=== PATIENT | female | born 1975 | race Caucasian/White ===

== ENCOUNTER → 2016-08-05 | Outpatient (CLI) | payer BC ==
[2016-08-05 16:28] LABS: Basophils # (A) 0.1 k/uL (0-0.2); Basophils % (A) 1 %; CH 30.9; CHCM 33.3; Eosinophils # (A) 0.2 k/uL (0-0.7); Eosinophils % (A) 2 %; HCT 39.2 % (34.0-46.0); HDW 2.28; HGB 12.7 gm/dL (11.4-16.0); Luc # (Auto) 0.15; Luc % (Auto) 2; Lymphocytes # (A) 3.3 k/uL (1.0-4.8); Lymphocytes % (A) 33 %; MCH 30.2 pg (25.0-35.0); MCHC 32.3 g/dL (31.0-37.0); MCV 93.4 fL (80.0-100.0); Mean Platelet Volume 6.3; Monocytes # (A) 0.5 k/uL (0-1.0); Monocytes % (A) 5 %; Neutrophils # (A) 5.7 k/uL (1.3-7.7); Neutrophils % (A) 58 %; WBC 9.9 k/uL (3.8-10.6); WBC (Perox) 10.42
[2016-08-05 18:02] LABS: Erythrocyte Sedimentation Rate 20 mm/hr (0-20)
[2016-08-06 04:01] LABS: Lyme Antibodies Total(IgG/IgM) 0.06 (<0.90)
[2016-08-06 11:39] LABS: HLA B27 POSITIVE; HLA B27 Comment SEEBELOW
[2016-08-06 14:48] LABS: C-ANCA <1:20 Titer (<1:20); P-ANCA <1:20 Titer (<1:20)
== END | disposition home or self-care (01) ==
LOC: LABWHC1 16:11
PROVIDERS: ATTEND Nurse Practitioner Family
DX: M25.50 Pain in unspecified joint (principal); M54.2 Cervicalgia; M50.90 Cervical disc disorder, unspecified, unspecified cervical region
CPT/HCPCS: 36415; 85025; 85652; 86038; 86255; 86618; 86812

== ENCOUNTER → 2016-08-27 | Outpatient (CLI) | payer BC ==
[2016-08-27 16:05] LABS: Basophils % (A) 0 %; CH 31.1; CHCM 33.5; Eosinophils # (A) 0.1 k/uL (0-0.7); Eosinophils % (A) 1 %; HCT 40.5 % (34.0-46.0); HDW 2.29; HGB 13.7 gm/dL (11.4-16.0); Luc # (Auto) 0.24; Luc % (Auto) 2; Lymphocytes # (A) 3.1 k/uL (1.0-4.8); Lymphocytes % (A) 28 %; MCH 31.7 pg (25.0-35.0); MCHC 33.9 g/dL (31.0-37.0); MCV 93.3 fL (80.0-100.0); Mean Platelet Volume 7.3; Monocytes # (A) 0.5 k/uL (0-1.0); Monocytes % (A) 5 %; Neutrophils # (A) 6.8 k/uL (1.3-7.7); Neutrophils % (A) 63 %; RBC 4.34 m/uL (3.80-5.40); RDW 12.8 % (11.5-15.5); WBC 10.8 k/uL (3.8-10.6); WBC (Perox) 11.44
== END ==
LOC: LABWHC1 15:35
PROVIDERS: ATTEND Obstetrics & Gynecology
DX: Z01.812 Encounter for preprocedural laboratory examination (principal); N92.0 Excessive and frequent menstruation with regular cycle
CPT/HCPCS: 36415; 85025

== ENCOUNTER 2016-09-22 07:09 | Day surgery (SDC) | payer BC ==
[2016-09-17 11:02] VITALS: BMI 25.7
--- NOTE | 2016-09-18 16:37 | HP ---
DATE OF ADMISSION: 09/22/2016 HISTORY: This is a 41-year-old 2, para 2 woman with a history of heavy, bothersome menses. She has monthly menses lasting 5 days with 2 to 3 days being very heavy. She desires definitive management in the form of NovaSure endometrial ablation. She has undergone normal pelvic ultrasound and endometrial biopsy. ALLERGIES: NO KNOWN DRUG ALLERGIES. MEDICATIONS: 1. Xanax 0.5 mg p.r.n. 2. Flexeril p.r.n. PAST MEDICAL HISTORY: Condyloma. PAST SURGICAL HISTORY: Laparoscopic cholecystectomy in 2009. PAST INTERFACE ANALYST HISTORY: She is 2, para 2 with a history of 2 normal spontaneous vaginal deliveries. She has regular but bothersome menses, as described above. control method is vasectomy. SOCIAL HISTORY: She is . Negative for tobacco, alcohol and drug use. FAMILY HISTORY: Noncontributory. REVIEW OF SYSTEMS: Positive for bothersome menses. Negative for anemia, fatigue, fevers, chills, nausea, vomiting, diarrhea, constipation, chest pain, shortness of breath. PHYSICAL EXAMINATION: Blood pressure is 112/70, heart rate 60. Weight 201 pounds. Height 5 feet 11-1/2 inches. In general, this is a pleasant female in no apparent distress. HEENT exam is unremarkable, with no palpable lymphadenopathy or thyromegaly. Lungs are clear to auscultation bilaterally. The heart has a regular rate and rhythm. The abdomen is soft and nontender with no rebound, no guarding and no flank pain. The extremities are free of any edema or lesions. Neurologically she is grossly intact. On pelvic examination, she has normal female external genitalia without lesions or irritation. The uterus is small, anteverted, freely mobile and in the midline. There are no adnexal abnormalities palpable. ASSESSMENT: This is a 41-year-old 2, para 2 woman with bothersome menses who is scheduled to undergo diagnostic hysteroscopy and NovaSure endometrial ablation. This procedure, alternatives, risks and benefits have been reviewed with the patient in the office setting in detail. Risks include but are not limited to bleeding, infection, uterine injury with possible damage to bowel, bladder, ureters and/or other pelvic structures, possible need for reoperation in the future, possible anesthesia complications. The patient understands these risks and agrees to proceed. She is scheduled for diagnostic hysteroscopy and NovaSure endometrial ablation on 09/22/2016.
[~2016-09-22 07:09] MED LIST: Pre Op ABX Message 1 EACH MISC MISCELLANE ONE
[2016-09-22] MEDS ORDERED: DEXAMETHASONE SOD PHOSPHATE 10 MG/ML 1 ML VIAL IV ONE (07:24)
[2016-09-22] MEDS ORDERED: ONDANSETRON 4 MG/2 ML VIAL IVP ONE (07:24)
[2016-09-22] MEDS ORDERED: MIDAZOLAM 2 MG/2 ML VIAL IV PRN (07:24)
[2016-09-22] MEDS ORDERED: LACTATED RINGERS 1,000 ML IV SCH (07:24)
[2016-09-22] MEDS ORDERED: HYDROmorphone 1 MG/ML 1 ML SYRINGE IVP PRN (07:24)
[2016-09-22] MEDS ORDERED: LIDOCAINE 1% 20 ML VIAL (10MG/ML) FOR IV START INTRADERMA ONE (07:50)
[2016-09-22] MEDS ORDERED: MIDAZOLAM 2 MG/2 ML VIAL ONE (09:51)
[2016-09-22] MEDS ORDERED: fentaNYL (PF) 50 MCG/ML 2 ML AMP ONE (09:51)
[2016-09-22] MEDS ORDERED: KETOROLAC 30 MG/ML 1 ML VIAL ONE (09:51)
[2016-09-22] MEDS ORDERED: LIDOCAINE 1% INJ 10MG/ML (20 ML MDV) ONE (09:51)
[2016-09-22] MEDS ORDERED: PROPOFOL 10 MG/ML 20 ML VIAL IV ONE (09:51)
[2016-09-22] MEDS ORDERED: LIDOCAINE 2%-EPI 1:100,000 20 ML VIAL SUBMUCOSAL ONE ×2 (10:05)
--- NOTE | 2016-09-22 10:27 | P.OP ---
Date of Procedure: 09/22/16 Preoperative Diagnosis: Menorrhagia Postoperative Diagnosis: Menorrhagia Anesthesia: MAC Surgeon: Johanny Escobar Estimated Blood Loss (ml): 5 IV fluids (ml): 400 Urine output (ml): 50 Pathology: none sent Condition: stable Disposition: PACU Operative Findings: Grossly normal-appearing cervix and intrauterine cavity. Description of Procedure: After the patient was met in the preoperative holding area and all questions were answered, she was taken to the operating room where anesthetic was administered without incident. She was in positioned, prepped and draped in the dorsal lithotomy position. Appropriate timeout procedure was undertaken. The bladder was drained for approximately 50 mL of clear urine. Speculum was placed in the vagina and the cervix was grasped anteriorly with a single-tooth tenaculum. Paracervical block was placed. This was with 2% lidocaine plus epinephrine. The uterus was then sounded to 8 cm. The cervix was sequentially dilated with Hegar dilators to allow for passage of the diagnostic hysteroscope. The hysteroscope was introduced and the cavity was assessed. No gross intracavitary lesions were appreciated. The bilateral tubal ostia were visualized. The hysteroscope was removed and the cervix was further dilated to allow for passage of the NovaSure ablation device. The device was inserted with a cavity length of 4.5 cm, width of 4.5 cm. The device was enabled after the cavity assessment test was passed. Treatment cycle was 119 seconds at a power of 111 W. Following cessation of the treatment cycle the device was removed. The hysteroscope was reintroduced and complete desiccation of the endometrium was appreciated. Instruments were then removed from the cervix and it was observed. No active bleeding was noted. Speculum was removed from the vagina and the patient was awoken from anesthetic without incident. She was then transported to the recovery area in stable condition. All counts reported to me as correct.
[2016-09-22 10:34] VITALS: TEMP 97
[2016-09-22 10:48] VITALS: RESP 16
[2016-09-22 11:37] VITALS: BP 114/76; PULSE 66
== END 2016-09-22 12:01 | disposition home or self-care (01) ==
LOC: OR 07:09
PROVIDERS: ATTEND Obstetrics & Gynecology
DX: N92.0 Excessive and frequent menstruation with regular cycle (principal)
CPT/HCPCS: 81025; 58563; J2250; J1100; J2405; J2001; J3010; J1885; J2704

== ENCOUNTER → 2016-11-06 | Outpatient (CLI) | payer BC ==
--- NOTE | 2016-11-07 08:55 | MM ---
Reason for exam: follow-up at short interval from prior study. Last mammogram was performed 7 months ago. Physical Findings: Nurse did not find any significant physical abnormalities on exam. MG 3D Diag Mammo W/Cad LT CC and MLO view(s) were taken of the left breast. Prior study comparison: April 01, 2016, bilateral MG 3d screening mammo w/cad. The breast tissue is heterogeneously dense. This may lower the sensitivity of mammography. The central asymmetric density on the CC view does not persist compatible with summation shadow. These results were verbally communicated with the patient and result sheet given to the patient on 11/06/16. ASSESSMENT: Negative, BI-RAD 1 RECOMMENDATION: Routine screening mammogram of both breasts in 6 months. Back on schedule April 2017.
== END | disposition home or self-care (01) ==
LOC: RADMAMWWP 15:39
PROVIDERS: ATTEND Obstetrics & Gynecology
DX: R92.8 Other abnormal and inconclusive findings on diagnostic imaging of breast (principal)
CPT/HCPCS: G0206; G0279

== ENCOUNTER → 2017-01-19 | Outpatient (CLI) | payer BC ==
[2017-01-19 08:59] LABS: Basophils % (A) 0 %; CH 32.3; CHCM 34.2; Eosinophils # (A) 0.2 k/uL (0-0.7); Eosinophils % (A) 2 %; HCT 40.9 % (34.0-46.0); HDW 2.22; HGB 13.6 gm/dL (11.4-16.0); Luc # (Auto) 0.15; Luc % (Auto) 2; Lymphocytes # (A) 2.3 k/uL (1.0-4.8); Lymphocytes % (A) 27 %; MCH 31.5 pg (25.0-35.0); MCHC 33.2 g/dL (31.0-37.0); Mean Platelet Volume 6.9; Monocytes # (A) 0.4 k/uL (0-1.0); Monocytes % (A) 5 %; Neutrophils # (A) 5.6 k/uL (1.3-7.7); Neutrophils % (A) 64 %; RDW 13.7 % (11.5-15.5); WBC 8.7 k/uL (3.8-10.6); WBC (Perox) 8.88
[2017-01-19 10:25] LABS: ALT 34 U/L (9-52); AST 23 U/L (14-36); Bilirubin, Delta 0.3 mg/dL (0.0-0.2); Blood Urea Nitrogen 9 mg/dL (7-17); C Reactive Protein 11.7 mg/L (<10.0); Non-African American GFR(MDRD) >60 (>60 ml/min/1.73 sqM); Rheumatoid Factor, Qnt <9 IU/mL (<12); Total Bilirubin 0.6 mg/dL (0.2-1.3)
[2017-01-19 12:18] LABS: Erythrocyte Sedimentation Rate 23 mm/hr (0-20)
[2017-01-19 16:59] LABS: Cyclic Citrull Pep IgG Unit <0.5 U/mL; Cyclic Citrullinated Pep IgG NEGATIVE (NEGATIVE)
== END | disposition home or self-care (01) ==
LOC: LABWHC1 08:18
PROVIDERS: ATTEND Internal Medicine Rheumatology
DX: D64.81 Anemia due to antineoplastic chemotherapy (principal); M25.50 Pain in unspecified joint; Z79.1 Long term (current) use of non-steroidal anti-inflammatories (NSAID); N18.9 Chronic kidney disease, unspecified; R77.0 Abnormality of albumin; E80.7 Disorder of bilirubin metabolism, unspecified; T50.905A Adverse effect of unspecified drugs, medicaments and biological substances, initial encounter
CPT/HCPCS: 36415; 82040; 82248; 82565; 84450; 84460; 84520; 85025; 85652; 86140; 86200; 86431; 86480

== ENCOUNTER 2017-01-22 09:58 | Day surgery (SDC) | payer BC ==
[2017-01-19 15:48] VITALS: BMI 27.5
[~2017-01-22 09:58] MED LIST changes: +LACTATED RINGERS 1,000 ML IV SCH; +LIDOCAINE 1% 20 ML VIAL (10MG/ML) FOR IV START INTRADERMA PRN; -Pre Op ABX Message 1 EACH MISC MISCELLANE ONE
[2017-01-22 10:20] VITALS: RESP 16; TEMP 97.7
[2017-01-22] MEDS ORDERED: LIDOCAINE 1% INJ 10MG/ML (20 ML MDV) ONE (11:01)
[2017-01-22] MEDS ORDERED: PROPOFOL 10 MG/ML 20 ML VIAL IV ONE (11:01)
[2017-01-22] MEDS ORDERED: MIDAZOLAM 2 MG/2 ML VIAL ONE (11:01)
--- NOTE | 2017-01-22 11:49 | P.PCN ---
Date of Procedure: 01/22/17 Preoperative Diagnosis: Postoperative Diagnosis: Procedure(s) Performed: Procedure: 1. Esophagogastroduodenoscopy and biopsy. 2. Colonoscopy and biopsy. Preoperative diagnosis: Dyspepsia and altered bowel function. Postoperative diagnosis: 1. Small sliding hiatal hernia with no obvious esophagitis or complicated reflux disease. 2. Mild antral gastritis. 3. Normal colon and terminal ileum. 4. Multiple biopsies obtained from the duodenum, antrum, esophagus, terminal ileum and right colon. Preparation: HalfLytely prep. Sedation: Was provided by anesthesia. Brief clinical history: The patient is a 41-year-old female who I have evaluated in the office earlier this month for dyspepsia and altered bowel function. This has been going on for several years and she describes episodes of sudden feeling of tiredness followed by feeling sweaty with cramps followed by or urgent diarrheic bowel movements. The patient was found recently to have SI and ankylosing spondylitis. This evaluation is to assess for inflammatory bowel disease complicated reflux disease or other pathology. Procedure: With the patient on her left lateral decubitus position and after informed consent and adequate sedation, I passed the Olympus-GIF 160 video upper endoscope through the cricopharyngeus down the esophagus. GE junction was around 39 cm from the incisors and there was a small sliding hiatal hernia. The esophagus did not show any obvious erosions, ulcers, strictures or Tiwari 's esophagus. The endoscope was then passed into the stomach which was insufflated with air and inspected in detail including the retroflex view in the cardia. There was mild mottling and erythema but no ulcers or erosions. Pyloric channel, duodenal bulb, post bulbar area and descending duodenum appeared within normal limits. Because of her symptoms, I obtained biopsies from the duodenum in addition to biopsies from the antrum and esophagus then the endoscope was withdrawn and I proceeded to do colonoscopy. Perianal area did not show any fissures or fistulas. There were no masses felt on digital rectal examination. The Olympus CFQ 160L video colonoscope was then inserted in the rectum in the usual fashion and advanced to the cecum. I intubated the ileocecal valve and examined the terminal ileum. Terminal ileum and colon appeared healthy with no edema, erythema, friability, ulceration, exudation or spontaneous bleeding. No polyps or tumors were seen or any obvious diverticular disease. Because of her symptoms, I obtained biopsies from the terminal ileum as well as from the right colon then I retroflexed the endoscope in the rectum before the endoscope was withdrawn. The patient tolerated the procedure well. Plan: The patient was reassured. Will await biopsy results and make further recommendations based on her course and biopsy results. I will keep you updated on her progress. Implants: Indications for Procedure: Operative Findings: Description of Procedure:
[2017-01-22 12:07] VITALS: BP 106/60; PULSE 58
== END 2017-01-22 12:39 | disposition home or self-care (01) ==
LOC: ORWHC2ENDO 09:58
DX: K29.70 Gastritis, unspecified, without bleeding (principal); K44.9 Diaphragmatic hernia without obstruction or gangrene; R19.4 Change in bowel habit; M45.8 Ankylosing spondylitis sacral and sacrococcygeal region; K21.9 Gastro-esophageal reflux disease without esophagitis; Z91.040 Latex allergy status; Z91.018 Allergy to other foods; Z91.09 Other allergy status, other than to drugs and biological substances
CPT/HCPCS: 81025; 88305; 88342; 45380; 43239; J2250; J2001; J2704

== ENCOUNTER → 2018-03-13 | Outpatient (CLI) | payer BC ==
--- NOTE | 2018-03-13 23:14 | MR ---
EXAMINATION TYPE: MR lumbar spine wo con DATE OF EXAM: 03/13/2018 COMPARISON: MRI lumbar spine January 15, 2012. HISTORY: Intervertebral disc disorders with radiculopathy per order. Back pain for 1.5 years into rig ht buttocks per patient. TECHNIQUE: Multiplanar, multisequence imaging of the lumbar spine is performed without IV contrast. FINDINGS: Sagittal images of the lumbar spine show vertebral body heights and alignment to appear sat isfactory. Disc desiccation L4-L5 and L5-S1 levels is redemonstrated. Mild disc space narrowing at th tl levels is again seen. There is persistent small disc herniation L5-S1 level on sagittal images. There is new disc herniation L4-L5 level noted on sagittal images. The conus medullaris remains daniele l in position and signal ending T12-L1 disc space level. Scattered small hemangiomas throughout the l umbosacral spine are noted. Axial images show the T12-L1, L1-L2, and L2-L3 levels all to appear within normal limits. Axial images at L3-L4 level shows mild broad-based disc protrusion minimally effacing anterior thecal sac, bilateral neural foramina are patent. Finding new from prior. Axial images at the L4-L5 level shows broad disc bulge with prominent left paracentral broad-based di sc protrusion component effacing the anterior thecal sac on axial image 8. Bilateral neural foramina remain patent. Axial images at L5-S1 level shows central disc protrusion but spinal canal is preserved and bilateral neural foramina are patent. IMPRESSION: Stable degenerative changes L5-S1 level. New prominent central disc herniation L4-L5 leve l noted.
== END ==
LOC: RADMRIMAIN 14:39
PROVIDERS: ATTEND Family Medicine
DX: M51.17 Intervertebral disc disorders with radiculopathy, lumbosacral region (principal); M47.27 Other spondylosis with radiculopathy, lumbosacral region
CPT/HCPCS: 72148

== ENCOUNTER → 2018-05-20 | Outpatient (CLI) | payer BC ==
--- NOTE | 2018-05-21 14:13 | MM ---
Reason for exam: screening (asymptomatic). Last mammogram was performed 1 year and 6 months ago. History: Took hormonal contraceptives for 18 years. Physical Findings: A clinical breast exam by your physician is recommended on an annual basis and results should be correlated with mammographic findings. MG 3D Screening Mammo W/Cad Bilateral CC and MLO view(s) were taken. Prior study comparison: November 06, 2016, left breast MG 3d diag mammo w/cad LT. April 01, 2016, bilateral MG 3d screening mammo w/cad. The breast tissue is heterogeneously dense. This may lower the sensitivity of mammography. There are three benign appearing round circumscribed right upper outer quadrant masses sable from the prior of 2015. No suspicious abnormality. No significant changes when compared with prior studies. ASSESSMENT: Benign, BI-RAD 2 RECOMMENDATION: Routine screening mammogram of both breasts in 1 year.
== END | disposition home or self-care (01) ==
LOC: RADMAMWWP 13:46
PROVIDERS: ATTEND Obstetrics & Gynecology
DX: Z12.31 Encounter for screening mammogram for malignant neoplasm of breast (principal)
CPT/HCPCS: 77063; 77067

== ENCOUNTER → 2019-04-08 | Outpatient (CLI) | payer OTHER ==
--- NOTE | 2019-04-08 12:24 | XR ---
EXAM TYPE: LUMBAR SPINE X RAY SERIES COMPARISON: NONE HISTORY: Pain TECHNIQUE: 3 views are submitted. FINDINGS: Alignment is anatomic. The pedicles are intact. The transverse processes are intact. There is no s pondylolisthesis. Postsurgical changes gallbladder fossa. Mild degenerative disc disease and facet a rthropathy levels L3-4, L4-5 and L5-S1. IMPRESSION: 1. Multilevel degenerative disc disease and facet arthropathy. Consider MRI follow-up.
== END | disposition home or self-care (01) ==
LOC: RADXRMAIN 11:59
PROVIDERS: ATTEND Emergency Medicine
DX: M51.36 Other intervertebral disc degeneration, lumbar region (principal); M46.96 Unspecified inflammatory spondylopathy, lumbar region
CPT/HCPCS: 72100

== ENCOUNTER → 2021-02-22 | Outpatient (CLI) | payer BC ==
--- NOTE | 2021-02-26 08:32 | MM ---
Reason for exam: screening (asymptomatic). Last mammogram was performed 2 years and 9 months ago. History: Took hormonal contraceptives for 18 years. Physical Findings: A clinical breast exam by your physician is recommended on an annual basis and results should be correlated with mammographic findings. MG 3D Screening Mammo W/Cad Bilateral CC and MLO view(s) were taken. Prior study comparison: May 20, 2018, bilateral MG 3d screening mammo w/cad. April 01, 2016, bilateral MG 3d screening mammo w/cad. The breast tissue is heterogeneously dense. This may lower the sensitivity of mammography. No significant changes when compared with prior studies. ASSESSMENT: Benign, BI-RAD 2 RECOMMENDATION: Routine screening mammogram of both breasts in 1 year.
== END | disposition home or self-care (01) ==
LOC: RADMAMWWP 16:42
PROVIDERS: ATTEND Obstetrics & Gynecology
DX: Z12.31 Encounter for screening mammogram for malignant neoplasm of breast (principal)
CPT/HCPCS: 77063; 77067

== ENCOUNTER → 2021-05-10 | Outpatient (CLI) | payer BC ==
[~2021-05-10] MED LIST changes: +CASIRIVIMAB (REGN10933) (EUA) 600 MG, IMDEVIMAB (REGN10987) (EUA) 600 MG in SODIUM CHLO... IVPB NR; -LACTATED RINGERS 1,000 ML IV SCH; -LIDOCAINE 1% 20 ML VIAL (10MG/ML) FOR IV START INTRADERMA PRN; +SODIUM CHLORIDE 0.9% 50 ML IVPB NR; +SODIUM CHLORIDE 0.9% 500 ML 500 ML in EMPTY BAG 1 BAG IV PRN
[2021-05-10 09:07] VITALS: RESP 16; TEMP 98.1
[2021-05-10 09:35] VITALS: BP 108/72; PULSE 66
== END | disposition home or self-care (01) ==
LOC: PROCWHC3 08:01
PROVIDERS: ATTEND Nurse Practitioner
DX: U07.1 COVID-19 (principal)
CPT/HCPCS: 96360; Q0244; M0243

== ENCOUNTER → 2022-06-13 | Outpatient (CLI) | payer BC ==
--- NOTE | 2022-06-16 10:40 | MM ---
Reason for Exam: Screening (asymptomatic). Last mammogram was performed 1 year(s) and 4 month(s) ago. Patient History: Menarche at age 13. First Full-Term at age 25. Perimenopausal. Patient used Hormonal Contraceptives for 18 years. Risk Values: Annel 5 year model risk: 0.9%. NCI Lifetime model risk: 9.3%. Prior Study Comparison: 11/06/2016 Left Diagnostic Mammogram, [facility]. 05/20/2018 Bilateral Screening Mammogram, [facility]. 02/22/2021 Bilateral Screening Mammogram, [facility]. Tissue Density: The breast tissue is heterogeneously dense. This may lower the sensitivity of mammography. Findings: Analyzed By CAD. Pattern appears symmetrical stable. A few scattered benign-appearing calcifications are present bilaterally. There may be new punctate calcifications within the right breast. Additional workup is recommended. There may be increasing calcifications within the left breast. Additional workup recommended. Overall Assessment: Incomplete: need additional imaging evaluation, BI-RAD 0 Management: Diagnostic Mammogram of both breasts. A negative mammogram report should not preclude additional follow up of suspicious palpable abnormalities. Patient should continue monthly self breast exam. A clinical breast exam by your physician is recommended on an annual basis and results should be correlated with mammographic findings. Electronically signed and approved by: Jameson Davenport D.O. Radiologis
== END | disposition home or self-care (01) ==
LOC: RADMAMWWP 15:07
PROVIDERS: ATTEND Obstetrics & Gynecology
DX: Z12.31 Encounter for screening mammogram for malignant neoplasm of breast (principal)
CPT/HCPCS: 77063; 77067

== ENCOUNTER → 2022-06-17 | Outpatient (CLI) | payer BC ==
--- NOTE | 2022-06-17 15:14 | MM ---
Reason for Exam: Additional evaluation requested from abnormal screening. Last screening mammogram was performed less than 1 month ago. Patient History: Menarche at age 13. First Full-Term at age 25. Perimenopausal. Patient has history of breast feeding. Patient used Hormonal Contraceptives for 18 years. Risk Values: Annel 5 year model risk: 0.9%. NCI Lifetime model risk: 9.3%. Prior Study Comparison: 02/22/2021 Bilateral Screening Mammogram, [facility]. 06/13/2022 Bilateral MG 3D screening mammo w/cad, [facility]. Tissue Density: The breast tissue is heterogeneously dense. This may lower the sensitivity of mammography. Findings: Analyzed By CAD. The bilateral areas of middle depth lateral calcifications become much less defined on magnification views. These are very faint and on the left, do not quite comprise a group at this time. Short interval follow-up recommended. On the right, these are very smudgy and poorly seen on the cc view, likely corresponding to multiple areas of milk of calcium on the mag ML view. More indeterminate faint calcifications are present centrally on the mag lateral view that may be reassessed at follow-up. Overall Assessment: Probably benign, BI-RAD 3 Management: Diagnostic Mammogram of both breasts in 6 months. 1. On the right, most of the calcifications appear to be benign milk of calcium. Short interval follow-up for the centrally located calcifications on the lateral view. The calcifications on the left do not quite comprise a group at this time and should be reassessed at follow-up. 2. Patient should continue monthly self breast exams. 3. This exam should not preclude additional follow-up of suspicious palpable abnormalities. Results were given to the patient verbally at the time of exam. Electronically signed and approved by: Orquidea Montanez M.D. Radiologist
== END | disposition home or self-care (01) ==
LOC: RADMAMWWP 14:26
PROVIDERS: ATTEND Obstetrics & Gynecology
DX: R92.8 Other abnormal and inconclusive findings on diagnostic imaging of breast (principal)
CPT/HCPCS: 77062; 77066

== ENCOUNTER → 2022-12-15 | Outpatient (CLI) | payer BC ==
--- NOTE | 2022-12-15 09:18 | MM ---
Reason for Exam: Follow-up at short interval from prior study. Last screening mammogram was performed 6 month(s) ago. Patient History: Menarche at age 13. First Full-Term at age 25. Perimenopausal. Patient has history of breast feeding. Patient used Hormonal Contraceptives for 18 years. Last menstrual period: 12/12/2022 Risk Values: Annel 5 year model risk: 0.9%. NCI Lifetime model risk: 9.3%. Prior Study Comparison: 04/01/2016 Bilateral Screening Mammogram, [facility]. 11/06/2016 Left Diagnostic Mammogram, [facility]. 05/20/2018 Bilateral Screening Mammogram, [facility]. 02/22/2021 Bilateral Screening Mammogram, [facility]. 06/13/2022 Bilateral MG 3D screening mammo w/cad, [facility]. 06/17/2022 Bilateral MG 3D work up w/cad [facility], [facility]. Tissue Density: There are scattered fibroglandular densities. Findings: Analyzed By CAD. No new suspicious masses, calcifications or distortions. Overall Assessment: Negative, BI-RAD 1 Management: Screening Mammogram of both breasts in 1 year. Results were given to the patient verbally at the time of exam. Patient should continue monthly self-breast exams. A clinical breast exam by your physician is recommended on an annual basis. This exam should not preclude additional follow-up of suspicious palpable abnormalities. Note on Annel scores and lifetime risk: 1. A Annel score greater than 3% is considered moderate risk. If this is the case, consider specialist referral to assess eligibility for a risk reducing agent. 2. If overall lifetime risk for the development of breast cancer is 20% or higher, the patient may qualify for future screening with alternating mammogram and breast MRI. Electronically signed and approved by: Nestor Kincaid DO
== END | disposition home or self-care (01) ==
LOC: RADMAMWWP 08:51
PROVIDERS: ATTEND Obstetrics & Gynecology
DX: R92.8 Other abnormal and inconclusive findings on diagnostic imaging of breast (principal)
CPT/HCPCS: 77062; 77066

== ENCOUNTER → 2023-12-17 | Outpatient (CLI) | payer BC ==
--- NOTE | 2023-12-20 13:02 | MM ---
Reason for Exam: Screening (asymptomatic). Last screening mammogram was performed 12 month(s) ago. Patient History: Menarche at age 13. First Full-Term at age 25. Perimenopausal. Patient has history of breast feeding. Patient used Hormonal Contraceptives for 18 years. Risk Values: Annel 5 year model risk: 0.9%. NCI Lifetime model risk: 9.2%. Prior Study Comparison: 11/06/2016 Left Diagnostic Mammogram, [facility]. 05/20/2018 Bilateral Screening Mammogram, [facility]. 02/22/2021 Bilateral Screening Mammogram, [facility]. 06/13/2022 Bilateral MG 3D screening mammo w/cad, [facility]. 06/17/2022 Bilateral MG 3D work up w/cad [facility], [facility]. 12/15/2022 Bilateral MG 3D diag mammo w/cad [facility], [facility]. Tissue Density: The breasts are heterogeneously dense, which may obscure small masses. Findings: Analyzed By CAD. The pattern is symmetrical. There may be some faint calcification within the mid posterior right breast. Additional evaluation with magnification views recommended. On the mediolateral oblique view there is an oval density with a transverse dimension of 0.4 cm located 6 cm the nipple. This may been present 2017. Additional evaluation with ultrasound is recommended. Diagnostic mammography can be performed. Left breast:No suspicious groups of microcalcifications, spiculated or lobular masses, architectural distortion or other secondary signs of malignancy are mammographically apparent. Overall Assessment: Incomplete: need additional imaging evaluation, BI-RAD 0 Management: Diagnostic Mammogram of both breasts. Diagnostic Breast Ultrasound of the right breast. A negative mammogram report should not preclude additional follow up of suspicious palpable abnormalities. Patient should continue monthly self breast exam. A clinical breast exam by your physician is recommended on an annual basis and results should be correlated with mammographic findings. Note on Annel scores and lifetime risk: 1. A Annel score greater than 3% is considered moderate risk. If this is the case, consider specialist referral to assess eligibility for a risk reducing agent. 2. If overall lifetime risk for the development of breast cancer is 20% or higher, the patient may qualify for future screening with alternating mammogram and breast MRI. Electronically signed and approved by: Jameson Davenport D.O. Radiologis
== END | disposition home or self-care (01) ==
LOC: RADMAMWWP 07:12
PROVIDERS: ATTEND Obstetrics & Gynecology
DX: Z12.31 Encounter for screening mammogram for malignant neoplasm of breast (principal); R92.333 Mammographic heterogeneous density, bilateral breasts
CPT/HCPCS: 77063; 77067

== ENCOUNTER → 2023-12-22 | Outpatient (CLI) | payer BC ==
--- NOTE | 2023-12-22 09:44 | MM ---
Reason for Exam: Additional evaluation requested from prior study. Last screening mammogram was performed less than 1 month ago. Patient History: Menarche at age 13. First Full-Term at age 25. Perimenopausal. Patient has history of breast feeding. Patient used Hormonal Contraceptives for 18 years. Risk Values: Annel 5 year model risk: 0.9%. NCI Lifetime model risk: 9.2%. Prior Study Comparison: 12/15/2022 Bilateral MG 3D diag mammo w/cad [facility], [facility]. 12/17/2023 Bilateral MG 3D screening mammo w/cad, [facility]. Tissue Density: The breasts are heterogeneously dense, which may obscure small masses. Findings: Analyzed By CAD. Asymmetric density at the 12:00 position measuring 4 to 5 mm 6 cm from the nipple. Ultrasound recommended. Overall Assessment: Incomplete: need additional imaging evaluation, BI-RAD 0 Management: Diagnostic Breast Ultrasound of the right breast. . Results were given to the patient verbally at the time of exam. Patient should continue monthly self-breast exams. A clinical breast exam by your physician is recommended on an annual basis. This exam should not preclude additional follow-up of suspicious palpable abnormalities. Note on Annel scores and lifetime risk: 1. A Annel score greater than 3% is considered moderate risk. If this is the case, consider specialist referral to assess eligibility for a risk reducing agent. 2. If overall lifetime risk for the development of breast cancer is 20% or higher, the patient may qualify for future screening with alternating mammogram and breast MRI. Electronically signed and approved by: Marcelino Phillips M.D. Radiologis
--- NOTE | 2023-12-22 10:12 | USB ---
Reason for Exam: Additional evaluation requested from abnormal screening. Patient History: Menarche at age 13. First Full-Term at age 25. Perimenopausal. Patient has history of breast feeding. Patient used Hormonal Contraceptives for 18 years. Risk Values: Annel 5 year model risk: 0.9%. NCI Lifetime model risk: 9.2%. Technique: Method: Targeted. Prior Study Comparison: 06/17/2022 Bilateral MG 3D work up w/cad [facility], [facility]. 12/15/2022 Bilateral MG 3D diag mammo w/cad [facility], [facility]. 12/17/2023 Bilateral MG 3D screening mammo w/cad, [facility]. Findings: The upper outer quadrant of the right breast, the axilla of the right breast and the retroareolar of the right breast were scanned. Cluster of cysts at the right 11:00 position 6 cm from the nipple measuring 9 x 4 mm. No solid masses seen. 6 month follow-up ultrasound and mammography advised. Overall Assessment: Probably benign, BI-RAD 3 Management: Diagnostic Mammogram of the right breast in 6 months. A clinical breast exam by your physician is recommended on an annual basis and results should be correlated with mammographic findings. This exam should not preclude additional follow-up of suspicious palpable abnormalities. Results were given to the patient verbally at the time of exam. Electronically signed and approved by: Marcelino Phillips M.D. Radiologis
== END | disposition home or self-care (01) ==
LOC: RADMAMWWP 08:31
PROVIDERS: ATTEND Obstetrics & Gynecology
DX: R92.333 Mammographic heterogeneous density, bilateral breasts (principal); R92.8 Other abnormal and inconclusive findings on diagnostic imaging of breast; Z92.0 Personal history of contraception
CPT/HCPCS: 77062; 77066

== ENCOUNTER → 2024-08-17 | Outpatient (CLI) | payer OTHER ==
--- NOTE | 2024-08-17 17:01 | XR ---
EXAMINATION TYPE: XR elbow complete RT DATE OF EXAM: 08/17/2024 4:44 PM COMPARISON: None. CLINICAL INDICATION: Female, 49 years old with history of M77.11, S63.501A, S63.8X1A; PHH, pain TECHNIQUE: XR elbow complete RT; elbow was examined in AP, lateral, and oblique projections. FINDINGS: No evidence of any acute osseous pathology, joint dislocation, or soft tissue swelling is n oted. No evidence of joint effusion is present. IMPRESSION: No evidence of acute fracture. [facility], , 08/17/2024 4:58 PM
--- NOTE | 2024-08-17 17:06 | XR ---
EXAMINATION TYPE: XR hand complete RT, XR wrist complete RT DATE OF EXAM: 08/17/2024 4:45 PM COMPARISON: None. CLINICAL INDICATION: Female, 49 years old with history of M77.11, S63.501A, S63.8X1A; PHH, pain TECHNIQUE: XR hand complete RT, XR wrist complete RT Frontal, lateral and oblique views were obtained . FINDINGS: Normal alignment of the visualized joints. No acute osseous pathology is identified. No e vidence of soft tissue swelling. No significant degeneration IMPRESSION: No acute osseous pathology. [facility] Juni Dickey, , 08/17/2024 5:03 PM
== END | disposition home or self-care (01) ==
LOC: RADXRMAIN 16:24
PROVIDERS: ATTEND Emergency Medicine
DX: M77.11 Lateral epicondylitis, right elbow (principal); S63.501A Unspecified sprain of right wrist, initial encounter; S63.8X1A Sprain of other part of right wrist and hand, initial encounter